=== PATIENT | female | born 1970 | race American Indian/Alaskan Native ===

== ENCOUNTER 2019-06-01 12:04 | Day surgery (SDC) | payer MEDICAID ==
[2019-06-01] MEDS ORDERED: NACL 0.9% 1000 ML 1,000 ML IV SCH (13:00)
--- NOTE | 2019-06-01 13:17 | Anesthesia Consultation ---
Anesthesia Consult and Med Hx Date of service: 06/01/19 - Airway Anesthetic Teeth Evaluation: Good ROM Head & Neck: Adequate Mental/Hyoid Distance: Adequate Mallampati Class: Class III Intubation Access Assessment: Possibly Difficult - Pulmonary Exam CTA: Yes - Cardiac Exam Cardiac Exam: RRR - Pre-Operative Health Status ASA Pre-Surgery Classification: ASA2 Proposed Anesthetic Plan: MAC - Pulmonary Hx Smoking: Yes Hx Respiratory Symptoms: No COPD: No Hx Sleep Apnea: No - Cardiovascular System Hx Hypertension: Yes Hx Heart Attack/AMI: No - Central Nervous System Hx Seizures: No CVA: No Hx Psychiatric Problems: No - Gastrointestinal Hx Gastroesophageal Reflux Disease: Yes - Endocrine Hx Renal Disease: No Hx Liver Disease: No Hx Insulin Dependent Diabetes: No Hx Non-Insulin Dependent Diabetes: No Hx Thyroid Disease: No - Other Systems Hx Alcohol Use: Yes Hx Obesity: No - Additional Comments Anesthesia Medical History Comments: No hx anesthetic complications.
--- NOTE | 2019-06-01 13:17 | Anesthesia Day of Surgery ---
Anesthesia Day of Surgery - Day of Surgery Patient Examined: Yes Patient H&P Reviewed: Yes Patient is NPO: Yes
[2019-06-01] MEDS ORDERED: DIPRIVAN 10 MG/ML IV ONE ×2 (15:52)
[2019-06-01] MEDS ORDERED: VERSED ONE (15:52)
--- NOTE | 2019-06-01 16:28 | Operative Report ---
Operative Report Operative Report: Date of procedure: 06/01/2019 Procedure: Colonoscopy with Multiple Snare polypectomies, Multiple Hot Biopsy Polypectomies, Ablation of colon polyp and submucosal injection. Attending physician: Triston Owens M.D. Fire Extinguisher Inspector: Triston Owens M.D. Indication: Patient is a 49-year-old female who presents for screening colonoscopy. This colonoscopy serves to evaluate patient so that treatment may be directed based on the findings. Consent: Informed consent was obtained after advising the patient and family regarding nature of this procedure, its indications, potential benefits as well as possible complications including but not limited to bleeding perforation and adverse reaction to medication, infection as well as other cardiopulmonary complications. An informed written and verbal consent was then obtained after due opportunity was provided for questions and answers. Monitoring: Patient was monitored continuously with pulse oximetry and electrocardiographic recordings as well as blood pressure recordings. Vital signs remained stable throughout this procedure with no untoward events. Preoperative assessment: Patient was assessed immediately prior to this procedure for capacity to tolerate monitored anesthesia care and moderate sedation as well as general anesthesia. Patient's ASA classification is 2, Mallampati class is 2, Hyomental distance is 3. Instrument: The [employer] video colonoscope. Medications: Propofol given intravenously in divided doses. For details please refer to anesthesia records. Description of procedure: Patient was placed in the left lateral decubitus position after achieving sedation, a digital rectal examination was performed following which the colonoscope was introduced into the anal verge and advanced to the cecum which was identified by the cecal valve, the appendiceal orifice, as well as by the cecal strap and direct transillumination. The colonoscope was subsequently withdrawn with careful inspection of all mucosal surfaces. Patient tolerated this procedure well and was subsequently taken to the recovery room. The following findings were noted. Findings: Cecum was normal. The ascending colon was normal. The transverse colon was normal. In the descending colon, patient had a 1 cm sessile polyp. This was elevated with submucosal injection of saline and removed by snare electrocautery. In the sigmoid colon, patient had a 5 mm sessile polyp which was hot biopsy polypectomy. In the rectum, presented diminutive flat polyp which is a mild biopsy polypectomy. The base was ablated. On the retroflex examination of the enema verge, patient had internal hemorrhoids. Impression: Descending colon polyp polyp status post snare polypectomy and submucosal injection. Sigmoid colon polyp status post hot biopsy polypectomy. Rectal polyp status post hot biopsy polypectomy and polyp ablation. Internal hemorrhoids. Plan: Follow pathology report. High-fiber diet. Repeat colonoscopy in 5 years if polyp is adenomatous.
--- NOTE | 2019-06-01 16:28 | Discharge Summary ---
Short Stay Discharge Plan Activity: advance as tolerated Diet: regular Follow up with: SARY FOFANA MD [Primary Care Provider] - 7 Days
[2019-06-01 16:53] VITALS: BP 142/93
== END 2019-06-01 12:05 | disposition home or self-care (01) ==
LOC: GIO 12:04
PROVIDERS: ATTEND Internal Medicine Gastroenterology
DX: Z12.11 Encounter for screening for malignant neoplasm of colon (principal); D12.4 Benign neoplasm of descending colon; K63.5 Polyp of colon; K62.1 Rectal polyp; K64.8 Other hemorrhoids; F17.210 Nicotine dependence, cigarettes, uncomplicated; I10 Essential (primary) hypertension; K21.9 Gastro-esophageal reflux disease without esophagitis; Z90.710 Acquired absence of both cervix and uterus; Z72.89 Other problems related to lifestyle; Z79.899 Other long term (current) drug therapy
CPT/HCPCS: 45380; 45381; 45384; 45385; 88305; J2250; J2704